=== PATIENT | male | born 1975 | race Caucasian/White ===

== ENCOUNTER 2018-03-24 08:21 | Outpatient (CLI) | payer BC ==
--- NOTE | 2018-03-24 09:08 | RAD ---
LEFT HIP 2 VIEWS: HISTORY: Hip pain. COMPARISON: None. FINDINGS: Mild acetabular osteophyte formation. No acute fracture or malalignment. Left obturator ring is int act. Prominent foramen along the anterior and lateral cortex of the proximal femoral metadiaphysis. Numerous phleboliths in the pelvis. Incompletely visualized left SI joint fusion hardware. IMPRESSION: Mild degenerative change. POS: TPC
== END 2018-03-24 08:22 | disposition home or self-care (01) ==
LOC: RAD 08:21
PROVIDERS: ATTEND Nurse Practitioner Family
DX: M25.552 Pain in left hip (principal); M16.12 Unilateral primary osteoarthritis, left hip
CPT/HCPCS: 80307; 80326; 80331; 80334; 80337; 80341; 80344; 80346; 80348; 80353; 80354; 80355; 80357; 80358; 80359; 80360; 80361; 80364; 80365; 80366; 80367; 80368; 80370; 80371; 80372; 80377

== ENCOUNTER 2019-04-21 05:02 | Inpatient (IN) | payer BC ==
[2019-04-21] MEDS ORDERED: Naloxone HCl 2 mg/2 ml Syringe ONE (05:15)
[2019-04-21 05:32] LABS: Bicarbonate (HCO3v) 4.4 mmol/L (22.0-28.0); CO2 Tension (PvCO2) 20.8 mmHg (40.0-50.0); Calcium, Ionized 1.01 mmol/L (See Comments:); Chloride 104 mmol/L (98-107); Hemoglobin - Calc 16.2 g/dL (14.0-18.0); Potassium 4.1 mmol/L (3.5-5.1); Sodium 125 mmol/L (138-145); vO2 Saturation-calc 90.1 % (60.0-85.0)
[2019-04-21 05:55] LABS: #Eosinphils 0.1 thou/uL (0.0-0.7); #Lymphocytes 1.4 thou/uL (1.20-3.40); #Monocytes 1.9 thou/uL (0.11-0.59); #Neutrophils 13.6 thou/uL (1.40-6.50); %Basophils 0.2 % (0.0-1.0); %Eosinophils 0.7 % (0.0-10.0); %Lymphocytes 8.5 % (21.0-51.0); %Neutrophils 79.7 % (42.0-75.0); Hemoglobin 14.7 g/dL (14.0-18.0); Mean Platelet Volume 9.3 fL (7.4-10.4); Platelet Count 268 thou/uL (130-400); RBC Distribution Width 11.9 % (11.5-14.5); Red Blood Cell (RBC) Count 4.61 mill/uL (4.70-6.10); White Blood Cell (WBC) Count 17.1 thou/uL (4.8-10.8)
[2019-04-21 06:00] LABS: Bacteria/HPF None Seen HPF (None Seen); Bilirubin Negative (Negative); Blood, Urine 1+ (Negative); Clarity Clear (Clear); Glucose, Urine (Dipstick) Greater than 1000 mg/dL (Negative); Leukocyte Negative Leu/uL (Negative); Nitrite Negative (Negative); Protein, Urine (Dipstick) 50 mg/dL (Neg-Trace); RBC/HPF 0-3 HPF (0-3); Squamous Epithelial 0-3 HPF (0-3); Urobilinogen Normal mg/dL (Less than 2); WBC/HPF 0-3 HPF (0-3)
[2019-04-21 06:10] LABS: Acetaminophen Less than 6.0 mcg/mL (10.0-30.0); Alcohol Less than 10 mg/dL (Less than 10); Salicylate Less than 8.0 mg/dL (15.0-30.0)
[2019-04-21 06:11] LABS: ALT (SGPT) 13 U/L (8-55); AST (SGOT) 12 U/L (5-34); Albumin 4.4 g/dL (3.5-5.0); Alcohol Less than 10 mg/dL (Less than 10); Alkaline Phosphatase 54 U/L (40-110); BUN (Urea Nitrogen) 38 mg/dL (8.9-20.6); Bilirubin, Total 0.3 mg/dL (0.2-1.2); Calc. Creatinine Clearance 0 mL/min (70-130); Calcium 8.2 mg/dL (7.8-10.44); Chloride 95 mmol/L (98-107); Estimated GFR-MDRD 30; Globulin 2.5 g/dL (2.4-3.5); Glucose 423 mg/dL (70-105); Potassium 4.3 mmol/L (3.5-5.1); Protein, Total 6.9 g/dL (6.0-8.3); Sodium 130 mmol/L (136-145)
[2019-04-21 06:14] LABS: Carbon Dioxide Less than 8 mmol/L (22-29)
[2019-04-21 06:24] LABS: Actual Bicarbonate (HCO3a) 1.8 mEq/L (22-28); Analyzer IN Cardio ER; Carboxyhemoglobin (COHb) 0.5 gm% (0.0-3.0); Hemoglobin (Hb) 13.9 g/dL (14.0-18.0); O2 Tension (PaO2) 151.6 mmHg (80.0-100.0); Potassium - ABG Lab 4.11 mmol/L (3.70-5.30)
[2019-04-21] MEDS ORDERED: Sodium Bicarb 50 MEQ/50 ML VIAL ONE ×4 (06:26→07:18)
[2019-04-21 06:27] LABS: Amphetamine Not Detected (NotDetected); Barbiturates Screen Not Detected (NotDetected); Benzodiazepine Screen Not Detected (NotDetected); Cocaine Metabolite Screen Not Detected (NotDetected); Medtox Reader # READER 4; Methadone Not Detected (NotDetected); Methamphetamine Not Detected (NotDetected); Opiate Screen Not Detected (NotDetected); Oxycodone Screen Not Detected (NotDetected); Phencyclidine (PCP) Not Detected (NotDetected); THC/Cannabinoid Screen Not Detected (NotDetected); Tricyclic Screen Not Detected (NotDetected)
[2019-04-21 06:28] LABS: Medtox Control Line Valid? VALID (VALID)
[2019-04-21] MEDS ORDERED: Insulin Regular 300 UNITS/3 ML VIAL ONE (06:29)
[2019-04-21] MEDS ORDERED: Sodium Bicarb 50 MEQ/50 ML Abboject 8.4% SYRINGE ONE (06:35)
[2019-04-21 06:36] LABS: pH, Arterial 6.88 (7.35-7.45)
[2019-04-21 06:37] LABS: Base Excess (BEa) -30.1 mEq/L (-2.0 to +3.0); CO2 Tension 9.9 mmHg (35.0-45.0)
[2019-04-21 06:40] LABS: Puncture Site RR
[2019-04-21 06:41] LABS: ALV-art Gradient -14.245 (0-20)
[2019-04-21] MEDS ORDERED: D5 1/2 NS w/20 mEq KCL 1,000 ML IV SCH (06:45)
[2019-04-21] MEDS ORDERED: Insulin Regular 100 units/100 ml in NS IVPB SCH (06:45)
[2019-04-21] MEDS ORDERED: NS 0.9% w/ 20 MEQ KCL 1,000 ML IV SCH (06:45)
[2019-04-21] MEDS ORDERED: Cefepime 2 GM VIAL ONE (06:56)
[2019-04-21] MEDS ORDERED: Amiodarone 150 MG/3 ML VIAL ONE ×2 (07:28→08:03)
[2019-04-21] MEDS ORDERED: Digoxin 0.5 MG/2 ML AMP ONE (07:38)
[2019-04-21] MEDS ORDERED: Amiodarone 450 MG, Admixture Fee 1 EACH in Dextrose 5% in Water 250 ML IVPB SCH (08:00)
--- NOTE | 2019-04-21 08:03 | RAD ---
Chest AP view INDICATION: Altered mental status COMPARISON: April 21, 2019 5:22 AM FINDINGS: Lungs:The lungs are clear Cardiac silhouette:The cardiomediastinal silhouette appears within normal limits. Pulmonary vasculature:Normal Pleural spaces:No pleural effusion or pneumothorax is demonstrated. Upper abdomen:No abnormality seen. Osseous structures: No acute osseous abnormality. Additional findings:There is a new right IJ central venous catheter with the tip projecting in the re gion of the SVC. Dorsal column stimulator is unchanged in position. IMPRESSION: New right IJ central venous catheter as above. No acute abnormality.
--- NOTE | 2019-04-21 08:32 | RAD ---
Exam: Chest one view HISTORY:Altered mental status. Comparison: None FINDINGS: Cardiac silhouette: Normal Aorta: Unremarkable Pulmonary vessels: Normal Costophrenic angles: Clear LUNGS: No masses or consolidation. Pneumothorax: None Osseous abnormalities: None IMPRESSION: No acute cardiopulmonary process.
--- NOTE | 2019-04-21 08:33 | CT ---
PRELIMINARY REPORT/[facility]/EMERGENCY AFTER HOURS PROCEDURE: EXAM: CT Head Without Intravenous Contrast. CLINICAL HISTORY: Chronic back pain. Pain since Thursday. Lower back pain and, last 2 days sleeping more and not communic ating well. Takes hydrocodone and oxycontin. BG 338, VS stable. 120/56, HR 100, 94% RA. Back fusion 2 001. TECHNIQUE: Axial computed tomography images of the head/brain without intravenous contrast. COMPARISON: None provided. FINDINGS: BRAIN: No acute intraparenchymal hemorrhage. No mass lesion. No CT evidence for acute territorial inf arct. No midline shift or extra-axial collection. VENTRICLES: No hydrocephalus. ORBITS: The orbits are unremarkable. SINUSES AND MASTOIDS: Mild sphenoid chronic sinusitis SOFT TISSUES: No significant facial or scalp soft tissue swelling evident. No radiopaque foreign body is seen. BONES: No acute skull fracture. IMPRESSION: No acute intracranial abnormality. ELECTRONICALLY SIGNED BY: Trung Aaron M.D. Apr 21, 2019 6:43:26 AM HEAD HOLDER This report is intended for review by the ordering physician only, in accordance of law. If you recei ve this report in error, please call [facility] at [phone]. FINAL REPORT HEAD CT WITHOUT CONTRAST: HISTORY: Altered mental status. COMPARISON: None. FINDINGS: No parenchymal hemorrhage. No extraaxial hematoma. No midline shift. Basilar cisterns are patent. Intact calvarium. Adequate aeration of the sinuses and mastoid air rita ls. IMPRESSION: This report is in agreement with the initial report by [facility]. No acute intracranial proce ss. POS: OFF
[2019-04-21 08:37] LABS: BUN (Urea Nitrogen) 39 mg/dL (8.9-20.6); Calc. Creatinine Clearance 0 mL/min (70-130); Calcium 6.8 mg/dL (7.8-10.44); Carbon Dioxide Less than 8 mmol/L (22-29); Chloride 103 mmol/L (98-107); Estimated GFR-MDRD 33; Glucose 356 mg/dL (70-105); Potassium 3.4 mmol/L (3.5-5.1); Sodium 137 mmol/L (136-145)
[2019-04-21] MEDS ORDERED: Sodium Bicarbonate 150 MEQ in Dextrose 5% in Water 1,000 ML IV SCH ×3 (08:45→10:15)
[2019-04-21] MEDS ORDERED: Bisacodyl 5 MG TAB PO PRN (08:49)
[2019-04-21] MEDS ORDERED: Ondansetron PF 4 MG/2 ML Vial IVP PRN (08:49)
[2019-04-21] MEDS ORDERED: CCU Electrolyte Replacement 1 EACH IVPB SCH (08:49)
[2019-04-21] MEDS ORDERED: Fentanyl 100 MCG/2 ML VIAL SLOW IVP PRN ×2 (08:53→15:45)
[2019-04-21] MEDS ORDERED: Amiodarone 450 MG in Dextrose 5% in Water 250 ML IVPB SCH (09:00)
[2019-04-21] MEDS ORDERED: Propofol 1,000 MG/100 ML VIAL IV ONE (09:06)
[2019-04-21 09:14] LABS: Magnesium 2.6 mg/dL (1.6-2.6); Phosphorus 5.3 mg/dL (2.3-4.7)
[2019-04-21 09:17] VITALS: BMI 27.5
[2019-04-21 09:21] LABS: Actual Bicarbonate (HCO3a) 2.8 mEq/L (22-28); Calcium, Ionized 1.14 mmol/L (1.12-1.30); Carboxyhemoglobin (COHb) 1.2 gm% (0.0-3.0); Hemoglobin (Hb) 13.2 g/dL (14.0-18.0); O2 Tension (PaO2) 145.9 mmHg (80.0-100.0); Potassium - ABG Lab 3.73 mmol/L (3.70-5.30); pH, Arterial 7.03 (7.35-7.45)
[2019-04-21 09:22] LABS: CO2 Tension 10.9 mmHg (35.0-45.0); Puncture Site RR
[2019-04-21] MEDS ORDERED: Norepinephrine 8 MG/0.9% NS 250 ML IVPB SCH (09:30)
[2019-04-21] MEDS ORDERED: D5 1/2 NS w/20 mEq KCL 1,000 ML ONE (09:47)
[2019-04-21] MEDS ORDERED: Acetaminophen 650 MG Suppository PR PRN (09:54)
[2019-04-21] MEDS: D5 1/2 NS w/20 mEq KCL 1,000 ML IV SCH ×3 (10:29→22:42)
[2019-04-21] MEDS: Famotidine/PF 20 mg/2ml Vial SLOW IVP SCH (11:40)
[2019-04-21] MEDS: Piperacillin/Tazobactam 3.375 GM in Sodium Chloride 0.9% 100 ML IVPB SCH ×3 (11:40→22:41)
--- NOTE | 2019-04-21 12:30 | CON ---
DATE OF CONSULTATION: 04/21/2019 SERVICE: Pulmonary Medicine. REASON FOR CONSULTATION: ICU patient. HISTORY OF PRESENT ILLNESS: The patient is a 43-year-old white male with past medical history significant for type 1 diabetes mellitus. He was in his usual state of health when he presented to the Emergency Department. I really cannot get any history from him presently. He presented to the Emergency Department with altered mentation and was discovered to be in diabetic ketoacidosis. It is not clear if there is a precipitating cause. I am not certain when he was last in his usual state of health, but his primary family members report that he had a recent night of significant alcohol use and possibly noncompliance with medication. Either way, in the Emergency Department, he was started on insulin. He had a tachyarrhythmia and was in atrial fibrillation. He ended up getting Cardizem, amiodarone, and digoxin. A 5 L of fluid have gone in him so far. He is currently on saline at 500 an hour. He denies having any significant shortness of breath, but he is lightheaded currently. PAST MEDICAL HISTORY: 1. Type 2 diabetes mellitus. 2. Hypertension. 3. Dyslipidemia. PAST SURGICAL HISTORY: 1. Back surgeries x8. 2. Knee surgery x1. SOCIAL HISTORY: Positive for significant alcohol use. He uses chewing tobacco. He previously denied any recreational drug use. FAMILY HISTORY: Noncontributory. ALLERGIES: NO KNOWN DRUG ALLERGIES. MEDICATIONS: List of his inpatient medications was reviewed. No specific updates were made at this time. REVIEW OF SYSTEMS: Cannot be obtained as the patient is currently encephalopathic. PHYSICAL EXAMINATION: VITAL SIGNS: Afebrile, pulse 140, respirations 25, and saturation 100%, currently on 2 L nasal cannula. Blood pressure 88/46. HEENT: Normocephalic and atraumatic. Sclerae white. Conjunctivae pink. Oral mucosa is moist without lesions. LUNGS: Decent air entry. No prolonged expiratory phase or wheezing is appreciated. HEART: Tachycardic. Regular. ABDOMEN: Soft, nontender, and nondistended. Bowel sounds are positive. MUSCULOSKELETAL: No cyanosis or clubbing. There is no pitting in the bilateral lower extremities. NEUROLOGIC: Grossly nonfocal. He moves all 4 extremities spontaneously and is following some simple commands with significant stimulation. LABORATORY DATA: WBC 7.1, hemoglobin 14.7, and platelets 268,000. A pH of 6.88, CO2 of 9.9, and O2 of 151. Ionized calcium falls within the normal limits. Bicarb is below the assay limit of 8, and an anion gap cannot be calculated, but it is quite high. Sodium and potassium are unremarkable. Creatinine 2.15, which is in historic high. Lactate 1.7, calcium 6.8, though the ionized calcium is normal. Phosphorus 5.3 and magnesium 2.3. Liver function studies are unremarkable. Urinalysis is remarkable only for ketones, and glucose. Beta-hydroxybutyric acid 14.47. Plasma alcohol is negative. Urine drug screen is also unremarkable. IMAGIN. CT of the brain demonstrates no acute intracranial abnormality. 2. Chest x-ray demonstrates a right IJ. Outside of that, there is no acute cardiopulmonary abnormality. ASSESSMENT: 1. Acute hypoxic respiratory failure. 2. Diabetic ketoacidosis. 3. Metabolic encephalopathy. 4. Acute kidney injury. 5. Systemic inflammatory response syndrome. DISCUSSION AND PLAN: We do not truthfully need to give him much in the way of bicarb. As he fix his acidosis, this should clear through time. I will repeat an ABG to make certain that he is clearing the acidosis. If he has, we will continue to watch him closely. I will switch his fluids over to half-normal saline and run him at 250 an hour. This will contain dextrose. Pulmonary/Critical Care will follow very closely while the patient remains in the ICU. We will initiate some Levophed to maintain MAPs of 65 or better. CRITICAL CARE TIME: 30 minutes. Job ID: [id number]
--- NOTE | 2019-04-21 12:57 | CON ---
DATE OF CONSULTATION: 04/21/2019 HISTORY OF PRESENT ILLNESS: I am seeing Mr. Pruett at our [facility] ICU as an Electrophysiology nursing education consultant. His problems are: 1. Atrial fibrillation with rapid ventricular rates; Difficult rate control due to hypotension. 2. Ketoacidosis with pH at 6.88. 3. History of diabetes. 4. History of EtOH abuse. 5. History of depression. 6. History of hypertension. 7. History of hypercholesteremia. 8. History of chronic back pain with repeated back surgeries. ALLERGIES: NONE NOTED. MEDICATIONS: At home include: 1. Glucosamine. 2. Benadryl. 3. Duloxetine. 4. Simvastatin. 5. Tadalafil. 6. Fenofibrate. 7. Metformin. 8. OxyContin. 9. Gabapentin. 10. Omeprazole. 11. Tizanidine. SUBJECTIVE: Mr. Pruett is here with complaining of chronic back pain initially, also with very rapid breathing and in obvious extreme distress. He was admitted in ER, found to be markedly acidotic with initial diltiazem dropped his blood pressure. Eventually, digoxin was administered and later amiodarone was also requested. He has no dizziness or loss of consciousness. No stroke-like symptoms. No neurological deficit noted there. His family is at the bedside. Rest of 12- point system otherwise unremarkable. OBJECTIVE DATA: VITAL SIGNS: Blood pressure is 104/56, pulse 72, respirations 19, weight 132 pounds, temperature is 95 degrees Fahrenheit. GENERAL: Alert and oriented man with apparent labored respiration. Elevated BMI. CHEST: Coarse without crackles. HEART: Sounds are tachycardic. No murmur or gallop. Irregularly irregular rhythm is heard. ABDOMEN: Benign. Bowel sounds positive. EXTREMITIES: Lower extremity without edema, clubbing, or cyanosis. Pulses are diminished. NEUROLOGIC: The patient is nonfocal. MUSCULOSKELETAL: Without joint swelling or deformity. SKIN: Without rash. DATABASE: Chest x-ray reveals no acute cardiopulmonary process. Brain CT was also negative. No acute intracranial abnormality. LABORATORY DATA: The ABGs initially reveals pH of 6.88 and 7.03, pCO2 is 9.9 and 10.9, pO2 is 151 and 145 consecutively. Potassium 4.11 and 3.73. Sodium 137, potassium 3.4, chloride 103, BUN is 39, creatinine 2.15 at 7:56 a.m. The initial blood work shows sodium 130, potassium 4.3, BUN is 38, creatinine is 2.36. Troponin I is 0.15. The EKG is reviewed, which is revealing atrial fibrillation with rapid rates. During my exam, he has converted back to sinus tachycardia. ASSESSMENT AND PLAN: Mr. Pruett is a 43-year-old man with prior history of diabetes, hypertension, no prior cardiac disease, who presented with atrial fibrillation and rapid rates with hypotension in the setting of likely diabetic ketoacidosis. He had difficulty to maintain his blood pressure with the usual heart rhythm controlling medications. Eventually required amiodarone for suppression with suboptimal results, but finally he converted back to sinus rhythm. He is receiving appropriate therapy with Dr. Rocha's care for the ketoacidosis with hydration, acid-base correction, and electrolyte correction as well. I think the atrial fibrillation likely secondary phenomenon to his marked metabolic derangement. Correction of this is paramount as already initiated by Dr. Rocha. Further hydration is back on as necessary. Electrolyte needs to be closely monitored. Hence, likely to get shifted with marked fluid and acid shift. At this point, I agree with the initiated amiodarone therapy. For now, seems to be back in sinus rhythm. Continued IV amiodarone until he can take p.o. pills. May consider rapid taper and discontinuation in the future. 2D echo will be requested and will continue recommendations in the future. Likely will need at least transient anticoagulation. Hence, his CHADS-VASc score is 2. Discussed these issues with Dr. Rocha and his family is at bedside. Job ID: [id number] [facility]
[2019-04-21] MEDS ORDERED: HYDROcodone/Acetaminophen 10/325 mg Tablet PO PRN (13:17)
[2019-04-21] MEDS ORDERED: [UNRECOGNIZED DRUG - REMARK] IVPB PRN (14:13)
[2019-04-21 14:54] LABS: Anion Gap 24 mmol/L (10-20); BUN (Urea Nitrogen) 35 mg/dL (8.9-20.6); Calc. Creatinine Clearance 68 mL/min (70-130); Calcium 7.4 mg/dL (7.8-10.44); Carbon Dioxide 11 mmol/L (22-29); Chloride 108 mmol/L (98-107); Estimated GFR-MDRD 38; Glucose 153 mg/dL (70-105); Magnesium 2.2 mg/dL (1.6-2.6); Phosphorus Less than 1.0 mg/dL (2.3-4.7); Potassium 3.7 mmol/L (3.5-5.1); Sodium 139 mmol/L (136-145)
--- NOTE | 2019-04-21 15:01 | HP ---
CHIEF COMPLAINT: Change in mental status. HISTORY OF PRESENT ILLNESS: The patient is a 43-year-old male who is a type 1 diabetic, who was brought in to the hospital by his girlfriend for change in mental status. The patient upon my evaluation, appears very ill, was tachypneic and was really not able to answer any questions. The patient's father was at the bedside, who stated that the patient has been under a lot of stress due to a recent divorce and has been very depressed. He normally has an insulin pump and there was some concern he ran out of his insulin. Apparently, last night, he started having abdominal pain, nausea, and vomiting. This is per all the ER notes. PAST MEDICAL HISTORY: He has a history of hypertension and diabetes type 1 and significant back surgeries. PAST SURGICAL HISTORY: He has had multiple back surgeries. He had 10. He also has an insulin pump. REVIEW OF SYSTEMS: Unable to obtain. The patient is currently awake, alert, but is unable to respond to detailed questions. SOCIAL HISTORY: He drinks socially. He has been drinking a lot on the weekends. He chews tobacco. No other recreational drug use. ALLERGIES: NO KNOWN DRUG ALLERGIES. MEDICATIONS: This is per ER notes. He takes Benadryl, glucosamine. He is on duloxetine, simvastatin, fenofibrate, metformin, OxyContin, gabapentin, omeprazole, and tizanidine. PHYSICAL EXAMINATION: VITAL SIGNS: Temperature 97.7, respirations were about 25. His pulse was ranging from 130-160, atrial fibrillation, blood pressure was 90/60, sats were 97% on room air. GENERAL: The patient was very tachypneic, awake, however, responsive to only a few questions. HEENT: Mucous membranes are dry. Pupils equal reactive to light. CV: S1 and S2 present. Irregularly irregular. He was in atrial fibrillation. LUNGS: Clear to auscultation. No rhonchi or wheezes noted. ABDOMEN: Obese. Bowel sounds are present x2. No pain upon palpation. EXTREMITIES: No edema. Pedal pulses are present x2. Neurovascular squires, the patient is moving all 4 extremities. He is awake and able to recall his name, but is not able to give me any further history. SKIN: No cuts, lesions, or bruises noted. LABORATORY DATA: WBCs of 17.1, hemoglobin of 14.7, hematocrit of 44.7, his platelets are 268. Chemistry: Sodium of 137, potassium of 3.4. His bicarb was less than 8. His creatinine was 2.3. His glucose was high, in the 300s. He also had an ABG which indicated a pH of 6.88, pCO2 of 9.9. He did have a CT head and a chest x-ray. The CT head did not show any acute abnormalities. The chest x-ray also did not show any acute abnormalities. ASSESSMENT AND PLAN: The patient is a very pleasant 43-year-old male who presents to the hospital with altered mental status. 1. Acute metabolic encephalopathy, most likely from the acidosis. The patient, currently, I do not believe he requires any intubation. He is awake and following commands. We will continue to monitor. 2. Diabetic ketoacidosis. The patient has been given 4 L of normal saline boluses. He is currently started on insulin drip. We will continue to monitor. His beta hydroxy is 14. We will check a hemoglobin A1c. The patient's father thinks that he has not been taking his insulin. He is a type 1 diabetic. 3. Acute kidney injury. We will continue IV hydration. 4. Elevated anion gap metabolic acidosis, most likely secondary from his diabetic ketoacidosis. Again, the patient was given four amps of bicarb. He was started on a bicarb drip, also Nephrology has been consulted. 5. Hypokalemia. We will replace the potassium. 6. Atrial fibrillation with rapid ventricular response. The patient initially was given Cardizem which dropped his pressure. He was then given digoxin 0.5 IV and was put on amiodarone drip. Cardiology was consulted. Also, EP was consulted given his low blood pressure and atrial fibrillation with rapid ventricular response. There were some thoughts about cardioversion; however, patient converted chemically. We will put him on anticoagulation. 7. Deep venous thrombosis prophylaxis, we will put the patient on anticoagulation. Job ID: [id number]
[2019-04-21] MEDS ORDERED: Potassium Phosphate 30 MMOL in Sodium Chloride 0.9% 500 ML IVPB SCH (16:45)
[2019-04-21 21:04] LABS: Anion Gap 20 mmol/L (10-20); BUN (Urea Nitrogen) 26 mg/dL (8.9-20.6); Calc. Creatinine Clearance 75 mL/min (70-130); Calcium 7.7 mg/dL (7.8-10.44); Carbon Dioxide 16 mmol/L (22-29); Chloride 109 mmol/L (98-107); Estimated GFR-MDRD 42; Glucose 104 mg/dL (70-105); Magnesium 2.2 mg/dL (1.6-2.6); Potassium 3.6 mmol/L (3.5-5.1); Sodium 141 mmol/L (136-145)
[2019-04-21] MEDS: Enoxaparin Sodium 100 MG/ML SYRINGE SC SCH (21:15)
[2019-04-21] MEDS: Vancomycin HCl 1 GM in Premix Bag 1 BAG IVPB SCH (21:16)
[2019-04-21] MEDS ORDERED: Potassium Phosphate 9 MMOL in Sodium Chloride 0.9% 100 ML IVPB PRN (21:57)
[2019-04-21] MEDS ORDERED: Potassium Phosphate 15 MMOL in Sodium Chloride 0.9% 250 ML 250 ML IV PRN (21:57)
[2019-04-21] MEDS ORDERED: Potassium Chloride 40 MEQ in Sodium Chloride 0.9% 250 ML 250 ML IVPB PRN (21:57)
[2019-04-21] MEDS ORDERED: Potassium Chloride 20 MEQ TAB PO PRN (21:57)
[2019-04-21] MEDS ORDERED: CCU ELECTROLYTE REPLACEMENT PROTOCOL FS PRN (21:57)
[2019-04-21] MEDS ORDERED: Potassium Phosphate 12 MMOL in Sodium Chloride 0.9% 250 ML 250 ML IV PRN (21:57)
[2019-04-21] MEDS ORDERED: PHOS-NAK 1 PKT PACK PO PRN ×2 (21:57)
[2019-04-21] MEDS ORDERED: Potassium Chloride 40 MEQ in Premix Bag 1 BAG IVPB PRN (21:57)
[2019-04-21] MEDS ORDERED: Magnesium 2 GM/50 ML 2 GM in Premix Bag 1 BAG IVPB PRN (21:57)
[2019-04-21] MEDS ORDERED: Magnesium Oxide 400 MG TAB PO PRN ×2 (21:57)
[2019-04-22] MEDS: Piperacillin/Tazobactam 3.375 GM in Sodium Chloride 0.9% 100 ML IVPB SCH ×2 (00:41→12:48)
[2019-04-22 03:58] LABS: Albumin 3.5 g/dL (3.5-5.0)
[2019-04-22 03:59] LABS: Chloride 108 mmol/L (98-107); Potassium 3.1 mmol/L (3.5-5.1); Sodium 138 mmol/L (136-145)
[2019-04-22 04:00] LABS: Calcium 7.6 mg/dL (7.8-10.44); Glucose 89 mg/dL (70-105)
[2019-04-22 04:01] LABS: Globulin 2.1 g/dL (2.4-3.5); Protein, Total 5.6 g/dL (6.0-8.3)
[2019-04-22 04:02] LABS: Anion Gap 19 mmol/L (10-20); Bilirubin, Total 0.5 mg/dL (0.2-1.2); Carbon Dioxide 14 mmol/L (22-29)
[2019-04-22 04:03] LABS: Alkaline Phosphatase 39 U/L (40-110)
[2019-04-22 04:04] LABS: Calc. Creatinine Clearance 99 mL/min (70-130); Estimated GFR-MDRD 58
[2019-04-22 04:05] LABS: AST (SGOT) 20 U/L (5-34); BUN (Urea Nitrogen) 17 mg/dL (8.9-20.6)
[2019-04-22 04:06] LABS: ALT (SGPT) 13 U/L (8-55)
--- NOTE | 2019-04-22 07:17 | CON ---
DATE OF CONSULTATION: 04/21/2019 SERVICE: Nephrology. REASON FOR CONSULTATION: Acute kidney injury and severe metabolic acidosis. REQUESTING PHYSICIAN: Dr. Rocha. CHIEF COMPLAINT: Acute mental status change. HISTORY OF PRESENT ILLNESS: The patient is altered and nonverbal, hence no significant history was obtained from him. The following history was obtained from review of medical record and from talking to parents at the bedside. The patient with type 1 diabetes mellitus, usually on insulin pump, was brought in by girlfriend due to mental status change. Also, the patient reportedly was started having nausea, vomiting, abdominal pain since last night. He was also reported that the patient who is going through divorce had been depressed in recent days and been drinking excessive amount of alcohol. It is also reported that the patient may have ran out of his insulin, which he uses via a pump. On presentation, the patient was altered, was unable to provide any significant history. He was also found to be tachycardic and attempt of giving Cardizem dropped his blood pressure, hence he was given digoxin and later on amiodarone. The patient was also found to be clinically dry, severely acidotic and with acute kidney injury and was resuscitated with IV fluid about 5 L and subsequently started on insulin infusion. PAST MEDICAL HISTORY: 1. Hypertension. 2. Hyperlipidemia. 3. Chronic back pain. 4. Type 1 diabetes, on insulin pump. PAST SURGICAL HISTORY: Back surgeries. FAMILY HISTORY: Unable to perform. SOCIAL HISTORY: The patient seems to be living with girlfriend. Reportedly, going through divorce. Drinks alcohol socially. There is no history of recreational drug use. ALLERGIES: NO KNOWN DRUG ALLERGIES REPORTED. HOME MEDICATIONS: 1. Hydrocodone/acetaminophen 10/325 one tablet q.6 p.r.n. 2. OxyContin 20 mg at bedtime. 3. Amlodipine 5 mg p.o. daily. 4. Cholecalciferol 5000 units daily. 5. Cymbalta 60 mg p.o. daily. 6. Jardiance 25 mg p.o. daily. 7. Fenofibrate 134 mg p.o. daily. 8. Gabapentin 300 mg p.o. t.i.d. 9. Levothyroxine 150 mcg p.o. daily. 10. Cozaar 100 mg p.o. daily. 11. Metformin 1000 mg p.o. b.i.d. with meals. 12. Phentermine 37.5 mg p.o. daily. 13. Simvastatin 40 mg p.o. daily at bedtime. 14. Tadalafil 20 mg p.o. p.r.n. 15. Tizanidine 4 mg p.o. t.i.d. REVIEW OF SYSTEMS: Could not be performed due to the patient's condition. PHYSICAL EXAMINATION: VITAL SIGNS: Temperature 95.7, pulse 112, respiratory rate 22, SpO2 of 100% on room air, and blood pressure is 89/63. GENERAL: Obese male, in some respiratory distress due to tachypnea. The patient however is afebrile, anicteric, and acyanotic. In fact, he is hypothermic and had Lizzie Hugger in place. HEENT: Normocephalic and atraumatic. Oral mucosa is dry. NECK: Supple with no JVD. CARDIOVASCULAR: Irregular rhythm and rate with tachycardia. RESPIRATORY: Fair air entry bilateral with some transmitted breath sounds. The patient is tachypneic. No obvious rhonchi were appreciated. GI: Full, soft, nontender, nondistended with normal bowel sounds. EXTREMITIES: Grossly normal looking, atraumatic with no edema. UROGENITAL: Price catheter is in place. BLIND INSTALLER: The patient is awake. He manages to say one or few words. Cranial nerves 2 through 12 are grossly intact. DIAGNOSTIC DATA: CBC showed WBC count of 17, hemoglobin of 14.7, MCV of 97.0, platelets of 268. Initial blood gas showed pH of 6.88 with pCO2 of 9.9. Repeat blood gas 3 hours later showed pH of 7.03 with pCO2 of 10.9. Initial CMP on presentation showed sodium 130, potassium 4.2, chloride 95, CO2 less than 8, BUN 38, creatinine 2.36, glucose 423, calcium 8.2. Liver enzymes were unremarkable as well as bilirubin. Repeat BMP 2 hours later showed sodium 137, potassium 3.4, chloride 103, CO2 less than 8, BUN 39, creatinine 2.15, glucose 356, and calcium 6.8. Urinalysis showed light yellow, clear urine with pH of 5.5, specific gravity of 1.022 with urine protein of 50, urine glucose more than 1000 and urine ketones greater than 150 with 1+ blood, negative nitrite, bilirubin, and leukocyte esterase. Microscopy showed 0 to 3 rbc and 0 to 3 wbc. Urine drug screen was unremarkable. Salicylate was less than 8. Acetaminophen was less than 6.0, and plasma alcohol was less than 10. However, beta hydroxybutyrate was 14.47. Chest x-ray showed normal cardiac silhouette with unremarkable aorta and normal pulmonary vessels as well as clear costophrenic angles. No acute cardiopulmonary process was noted. CT scan of the brain showed no acute intracranial abnormality. ASSESSMENT: 1. Acute kidney injury: Due to hemodynamic factors related to volume depletion as well as cytokine mediated injury induced nephrotoxicity. 2. Hyperkalemia. 3. Hypokalemia. 4. High anion gap metabolic acidosis: This is due to DKA as well as alcohol abuse. The patient also was on metformin prior to presentation. 5. DKA. 6. Uncontrolled diabetes. 7. Alcohol intoxication. 8. Alcohol abuse. 9. Atrial fibrillation with rapid ventricular response. 10. Hypotension: Due to volume depletion. 11. Acute mental status change due to acute toxic and metabolic encephalopathy. PLAN: 1. We will start sodium bicarbonate. Aggressive IV fluid therapy will be continued. Insulin therapy as per primary attending. 2. We will replete serum potassium. 3. We will also get phosphorus and magnesium and replete as indicated. 4. Further treatment to follow depending on hospital course. Job ID: [id number]
[2019-04-22] MEDS: DULoxetine 60 MG CAP PO SCH (07:43)
[2019-04-22] MEDS: Enoxaparin Sodium 100 MG/ML SYRINGE SC SCH ×2 (07:43→20:39)
[2019-04-22] MEDS: Famotidine/PF 20 mg/2ml Vial SLOW IVP SCH ×2 (07:43→20:30)
[2019-04-22] MEDS: Vancomycin HCl 1 GM in Premix Bag 1 BAG IVPB SCH (07:43)
[2019-04-22 08:41] LABS: Magnesium 2.2 mg/dL (1.6-2.6)
--- NOTE | 2019-04-22 08:43 | PRG ---
DATE OF SERVICE: 04/22/2019 SERVICE: Nephrology. SUBJECTIVE: A 43-year-old male with known history of hypertension, diabetes, and depression, admitted due to acute mental status change as well as nausea and vomiting. The patient was found to be hypotensive in atrial fibrillation as well as DKA with severe metabolic acidosis and DARIAN. Nephrology is following the patient for electrolyte derangement, metabolic acidosis, and DARIAN. The patient is clinically improved. Conversational today. Denied any new complaints. Denied nausea, vomiting, or chest pain. OBJECTIVE: VITAL SIGNS: Temperature 97.7, pulse 69, respiratory rate 19, SpO2 100% on room air, blood pressure is 142/61. GENERAL: Middle-age male, in no obvious distress. Afebrile. Anicteric. Acyanotic. HEENT: Normocephalic, atraumatic. Oral mucosa is moist. NECK: Supple with no JVD. CARDIOVASCULAR: Regular rhythm and rate with normal heart sounds one and two. RESPIRATORY: Fair air entry bilateral with some transmitted breath sounds. No obvious rhonchi or crackle appreciated. GI: Full, soft, nontender, nondistended with normal bowel sounds. EXTREMITIES: Grossly normal-looking, atraumatic with no obvious edema or erythema. GAS WELDER APPRENTICE: Conscious, alert and oriented x3 with appropriate mental status. The patient is conversational and moves all extremities. DIAGNOSTIC DATA: CMP today showed sodium 138, potassium 3.1, chloride 108, CO2 14, anion gap 19, BUN 17, creatinine 1.33, glucose 89, calcium 7.6, total bilirubin 0.5, AST 20, ALT 13, alkaline phosphatase 39, total protein 5.6, albumin 3.5, globulin 2.1. ASSESSMENT: 1. Acute kidney injury: Due to hemodynamic factors related to volume depletion from poor oral intake, increased GI losses and increased renal losses. Creatinine has improved from admission level of 2.36 to 1.33. 2. Severe metabolic acidosis: Initially of high anion gap type, but currently combined of both high anion gap and hyperchloremic acidosis. 3. Hypokalemia. 4. Hypophosphatemia. 5. Diabetic ketoacidosis. 6. Uncontrolled diabetes mellitus. 7. Alcohol abuse. 8. Acute metabolic and toxic encephalopathy. 9. Paroxysmal atrial fibrillation with rapid ventricular response. Back in sinus. PLAN: 1. Continue IV fluid therapy as well as insulin therapy. 2. Replete serum potassium. 3. We will get phosphorus level and replete, if indicated. 4. We will recommend transitioning from half NS plus potassium chloride to LR due to worsening hyperchloremic acidosis. 5. We will recheck renal function test in the morning. 6. Further treatment as per single needle tufting machine operator and primary care physician. Job ID: [id number]
[2019-04-22 08:47] LABS: Phosphorus 1.2 mg/dL (2.3-4.7)
[2019-04-22] MEDS: D5 1/2 NS w/20 mEq KCL 1,000 ML IV SCH (09:21)
[2019-04-22] MEDS ORDERED: Insulin Glargine 40 UNITS in Pre-Filled Syringe 1 EACH SC SCH (12:15)
[2019-04-22] MEDS ORDERED: D5 1/2 NS w/20 mEq KCL 1,000 ML IV SCH (12:30)
[2019-04-22] MEDS ORDERED: Insulin Regular 100 units/100 ml in NS IVPB SCH (12:30)
--- NOTE | 2019-04-22 12:39 | PDOC.EP ---
- Subjective Date: 04/22/19 Time: 12:37 Interval History: follow up for atrial fibrillation in the setting of acidosis DKA Awake, alert, feels tired and hungry. Does not recall much of yesterday. Family is bedside. Remains on amiodarone in SR - Review of Systems Constitutional: reports: weakness. denies: chills, fever, malaise, sweats Respiratory: denies: cough, dry, hemoptysis, pleuritic pain, shortness of breath , sputum, wheezing Cardiology: denies: chest pain, edema, heart racing, light headedness, palpitations, passing out Gastrointestinal: denies: abdominal pain, constipation, diarrhea, nausea, vomitting Musculoskeletal: denies: unstable gait, falls, neck pain, shoulder pain Neurological: denies: headache, vision changes - Objective Allergies/Adverse Reactions: Allergies Allergy/AdvReac Type Severity Reaction Status Date / Time No Known Drug Allergies Allergy Unverified 04/21/19 06:30 Current Medications Acetaminophen (Tylenol) 650 mg [place] Q6H PRN PRN Reason: Headache/Fever or Pain Last Admin: 04/21/19 21:11 Dose: 650 mg Hydrocodone Bitart/Acetaminophen (Rogers 10/325) 1 tab PO Q4H PRN PRN Reason: Moderate Pain (4-6) Bisacodyl (Dulcolax) 10 mg PO DAILYPRN PRN PRN Reason: Constipation Duloxetine HCl (Cymbalta) 60 mg PO DAILY [facility] Last Admin: 04/22/19 07:43 Dose: 60 mg Enoxaparin Sodium (Lovenox) 100 mg SC 0900,2100 [facility] Last Admin: 04/22/19 07:43 Dose: 100 mg Famotidine (Pepcid) 20 mg SLOW IVP BID [facility] Fentanyl (Sublimaze) 25 mcg SLOW IVP Q2H PRN PRN Reason: Mild-Moderate Pain (1-5) Fentanyl (Sublimaze) 50 mcg SLOW IVP Q3H PRN PRN Reason: Severe Pain (7-10) Amiodarone HCl 450 mg/Miscellaneous Medication 1 each/ Dextrose/Water 259 mls @ 0 mls/hr IVPB INF [facility]; Protocol Last Admin: 04/21/19 16:26 Dose: 259 mls Piperacillin Sod/Tazobactam (Sod 3.375 gm/ Sodium Chloride) 100 mls @ 200 mls/ hr IVPB Q6HR [facility] Last Admin: 04/22/19 00:41 Dose: 100 mls Vancomycin HCl 1 gm/ Device 200 mls @ 200 mls/hr IVPB 08,1999 [facility] Last Admin: 04/22/19 07:43 Dose: 200 mls Potassium Chloride 40 meq/ (Sodium Chloride) 270 mls @ 135 mls/hr IVPB ASDIR PRN PRN Reason: FOR SERUM K+ 2.5 - 3.5 Potassium Chloride 40 meq/ (Device) 100 mls @ 50 mls/hr IVPB ASDIR PRN PRN Reason: FOR SERUM K+ 2.5 - 3.5 Magnesium Sulfate 1 gm/ Sodium (Chloride) 102 mls @ 102 mls/hr IV PRN PRN PRN Reason: MAG LEVEL 1.4 - 2.0 Magnesium Sulfate 2 gm/ Device 50 mls @ 50 mls/hr IVPB ASDIR PRN PRN Reason: MAGNESIUM < 1.4 Potassium Phosphate 9 mmol/ (Sodium Chloride) 103 mls @ 25.75 mls/hr IVPB ASDIR PRN PRN Reason: Phosphate 1.0-1.8 Last Admin: 04/22/19 09:35 Dose: 103 mls Potassium Phosphate 12 mmol/ (Sodium Chloride) 254 mls @ 63.5 mls/hr IV ASDIR PRN PRN Reason: Serum phosphate 0.5-0.9 Potassium Phosphate 15 mmol/ (Sodium Chloride) 255 mls @ 63.75 mls/hr IV ASDIR PRN PRN Reason: Serum Phos < 0.5 Insulin Glargine 40 units/ (Miscellaneous Medication) 0.4 mls @ 0 mls/hr [facility] NOW [facility] Stop: 04/22/19 14:15 Insulin Human Regular 100 (units/ Sodium Chloride) 101 mls @ 3 mls/hr IVPB INF [facility] Stop: 04/22/19 17:00 Potassium Chloride/Dextrose/Sod Cl (D5 1/2 Ns W/20 Meq Kcl) 1,000 mls @ 100 mls /hr IV .Q10H [facility] Stop: 04/22/19 17:00 Magnesium Oxide (Magnesium Oxide) 400 mg PO BIDPRN PRN PRN Reason: FOR SERUM MAG 1.4 - 2.0 Magnesium Oxide (Magnesium Oxide) 800 mg PO PRN PRN PRN Reason: FOR SERUM MAG < 1.4 Miscellaneous Medication (Ccu Electrolyte Replacement) 1 each IVPB [facility] Stop: 05/21/19 08:50 Miscellaneous Medication (Pharmacy To Dose) 1 each IVPB PRN PRN PRN Reason: Pharmacy to dose Miscellaneous Medication (Pharmacy To Dose) 1 each IVPB PRN PRN PRN Reason: Pharmacy to dose Miscellaneous Medication (Phos-Nak) 1 pkt PO TIDPRN PRN PRN Reason: FOR PHOS LEVEL 1.0 - 1.8 Miscellaneous Medication (Phos-Nak) 2 pkt PO TIDPRN PRN PRN Reason: FOR PHOS LEVEL 0.5 - 1.0 Ccu Electrolyte (Replacement Protocol) 0 each FS PRN PRN PRN Reason: FOR ELECTROLYTE REPLACEMENT Ondansetron HCl (Zofran) 4 mg IVP Q6H PRN PRN Reason: Nausea/Vomiting Potassium Chloride (K-Dur) 40 meq PO ASDIR PRN PRN Reason: FOR SERUM K+ 2.5 - 3.5 Last Admin: 04/22/19 05:02 Dose: 40 meq Potassium Chloride (Klor-Con) 40 meq PER TUBE ASDIR PRN PRN Reason: FOR SERUM K+ 2.5-3.5 Vital Signs & Weight: Vital Signs Temp Pulse Ox 04/22/19 12:00 98.9 F 04/22/19 07:33 100 04/22/19 07:00 97.7 F 04/22/19 03:00 98.7 F Weight 224 lb 13.944 oz I/O: I/O 04/21/19 04/22/19 04/23/19 06:59 06:59 06:59 Intake Total 6008 2400 Output Total 4665 1590 Balance 1343 810 - Physical Exam General: alert & oriented x3, appears well, no apparent distress, speech clear, affect appropriate HEENT: mucus membranes moist, normocephaly Neck: supple neck, midline trachea, no JVD/HJR Cardiology: regular rate and rhythm, no murmur, PMI nondisplaced Lungs: clear to auscultation, normal breath sounds, no wheeze, rales, rhonchi Neurology: cranial nerve 2-12 intact, grossly intact, no lateralizing findings Abdomen: unremarkable, no pulsations/bruits, no hepatosplenomegaly Extremities: dry, strong pulses, warm - Labs Result Diagrams: 04/21/19 05:40 04/22/19 03:30 - EKG Interpretation EKG Method: Telemetry EKG shows: Sinus rhythm - Assessment/Plan Assessment/Plan: 1. Atrial fibrillation with rapid ventricular rates, especially with hypotension. 2. Ketoacidosis with pH at 6.88, glucose 423 3. History of diabetes, type 1 with insulin pump 4. History of EtOH abuse. 5. History of depression. 6. History of hypertension. 7. History of hypercholesteremia. 8. History of chronic back pain with repeated back surgeries. 9. CHADS2-VASC: 2 ( diabetes and HTN) -on lovenox for anticoagulation. Markedly improved in the past 24 hours. remains in SR after chemically converting with amiodarone gtt, which continues at 0.5mg/min. I would stop amiodarone once his acidosis/metabolic issues are corrected. I recommend continued anticoagulation throughout his hospital stay and upon discharge. Could consider Xarelto, possibly dose adjusted depending on his kidney function when the time comes. I will see him back in clinic in 6 weeks and anticipate having him wear a 14 day monitor to assess for A Fib. My hope is his AFib episode was simply provoked by his acidosis and no further episodes will be seen clinically now that he has stabilized. Transient OAC as mentioned above, but could consider switching to ASA alone in the future if no recurrent AF episodes are found. Will see thursday if he remains inpatient.
[2019-04-22 14:19] LABS: Vancomycin, Trough 10.8 ug/mL
[2019-04-22 14:44] LABS: Anion Gap 17 mmol/L (10-20); BUN (Urea Nitrogen) 11 mg/dL (8.9-20.6); Calc. Creatinine Clearance 111 mL/min (70-130); Calcium 7.7 mg/dL (7.8-10.44); Carbon Dioxide 18 mmol/L (22-29); Chloride 107 mmol/L (98-107); Estimated GFR-MDRD 65; Glucose 91 mg/dL (70-105); Sodium 139 mmol/L (136-145)
[2019-04-22] MEDS ORDERED: Dextrose 5% in Water 1,000 ML IV PRN (15:55)
[2019-04-22] MEDS ORDERED: Dextrose 50% Abboject 50 ML SYRINGE SLOW IVP PRN (15:55)
[2019-04-22] MEDS ORDERED: Vancomycin 1.5 GRAM/300 ML BAG 1.5 GM in Premix Bag 1 BAG IVPB SCH (16:00)
[2019-04-22] MEDS ORDERED: Potassium Chloride 20 MEQ TAB PO SCH (16:00)
--- NOTE | 2019-04-22 16:15 | PRG ---
DATE OF SERVICE: 04/22/2019 SERVICE: Pulmonary Medicine. INTERVAL HISTORY: The patient is doing fine from respiratory standpoint. Breathing comfortably. He indicates that he uses about 70 units on a daily basis of basal insulin. Outside of that, there were no events overnight. There were no fevers or chills. He denies any current chest discomfort, nausea, vomiting, or diarrhea. He feels like his appetite has improved. PHYSICAL EXAMINATION: VITAL SIGNS: Afebrile, pulse 59, blood pressure 148/65, respirations 29, saturation 99% currently on room air. GENERAL: The patient is awake and alert, in no apparent distress. LUNGS: Decent air entry with no prolonged expiratory phase or wheezing present. HEART: Normal rate, regular. ABDOMEN: Soft, nontender, and nondistended. Bowel sounds are positive. MUSCULOSKELETAL: No cyanosis or clubbing. There is no pitting in bilateral lower extremities. NEUROLOGIC: Grossly nonfocal. LABORATORY DATA: WBC 17.1, hemoglobin 14.7, platelets 268,000. Potassium 3.0. Bicarb 18, anion gap has improved to 17. Creatinine 1.21 and gently downtrending. Blood cultures x2 and urine culture negative to date. ASSESSMENT: 1. Acute hypoxic respiratory failure, resolved. 2. Diabetic ketoacidosis. 3. Metabolic encephalopathy. 4. Acute kidney injury. 5. Systemic inflammatory response syndrome. DISCUSSION AND PLAN: I will continue the patient on his current dose and insulin. I will give him 40 units of subcu Lantus. This will be on a daily basis. Potassium will be replaced. Once his anion gap improves a little bit more, we can feed him and consider him for transition to the floor. Pulmonary/Critical Care will continue to follow while he remains in the ICU. Job ID: [id number] MTDD
--- NOTE | 2019-04-22 16:15 | PRG ---
DATE OF SERVICE: 04/22/2019 SUBJECTIVE: The patient was seen at bedside, who earlier during round wanted to eat. Denies any nausea, vomiting, diarrhea, abdominal pain, chest pain, palpitation, or shortness of breath. No palpitations. PHYSICAL EXAMINATION: VITAL SIGNS: Blood pressure 148/65, heart rate of 59, respiratory rate 16, and oxygen saturation 99%. GENERAL: The patient is lying in bed, comfortably, in no distress. HEENT: Conjunctivae are normal. Oral mucosa moist. NECK: Supple. No JVD. No lymphadenopathy. CHEST: Normal vesicular breathing. HEART: Sounds are normal. ABDOMEN: Soft. EXTREMITIES: Negative edema of feet. No rash. No cyanosis. LABORATORY DATA: BMP unremarkable except potassium 3.0, CO2 of 18, anion gap 17, blood glucose is 91 on BMP, and blood sugar 113 on Glucochecks. IMPRESSION: 1. Diabetic ketoacidosis, resolved. The patient denies any nausea, vomiting, or abdominal pain. Feels hungry. Blood sugar is stable. Anion gap 17. Switch to long-acting insulin and sliding scale. 2. Acute kidney injury with dehydration and acidosis. Nephrology on board. The patient's electrolytes are improving. Continue electrolyte replacement protocol. Continue to monitor fluid status, which is improving. 3. Leukocytosis, possibly reactive. We will discontinue antibiotics. 4. Paroxysmal atrial fibrillation. EP evaluation appreciated. Continue amiodarone. Recommended to continue anticoagulation upon discharge and to follow up outpatient with EP for event monitoring. 5. Deep venous thrombosis and gastrointestinal prophylaxis. Plan discussed with the patient and nursing staff. Job ID: [id number]
[2019-04-22] MEDS: HumaLOG 300 UNITS/3 ML VIAL SC PRN ×2 (16:36→20:30)
[2019-04-22] MEDS: 1/2 NS w/KCL 20 mEq 1,000 ML IV SCH (16:56)
[2019-04-23] MEDS: 1/2 NS w/KCL 20 mEq 1,000 ML IV SCH (05:54)
[2019-04-23] MEDS: HumaLOG 300 UNITS/3 ML VIAL SC PRN ×3 (05:55→18:25)
[2019-04-23 06:48] LABS: #Monocytes 0.4 thou/uL (0.11-0.59); #Neutrophils 2.5 thou/uL (1.40-6.50); %Basophils 0.4 % (0.0-1.0); %Eosinophils 0.2 % (0.0-10.0); %Lymphocytes 25.7 % (21.0-51.0); %Monocytes 11.3 % (0.0-10.0); %Neutrophils 62.5 % (42.0-75.0); Hemoglobin 12.9 g/dL (14.0-18.0); Mean Corpuscular HGB CONC 33.7 g/dL (32.0-36.0); Mean Corpuscular Hemoglobin 31.8 pg (27.0-31.0); Mean Corpuscular Volume 94.2 fL (78.0-98.0); Platelet Count 118 thou/uL (130-400); Platelet Morphology Comment Appears Decreased; RBC Distribution Width 11.9 % (11.5-14.5); Red Blood Cell (RBC) Count 4.05 mill/uL (4.70-6.10); White Blood Cell (WBC) Count 3.9 thou/uL (4.8-10.8)
[2019-04-23 06:51] LABS: Albumin 3.7 g/dL (3.5-5.0); Anion Gap 20 mmol/L (10-20); BUN (Urea Nitrogen) 11 mg/dL (8.9-20.6); BUN/Creatinine Ratio 7.91; Calc. Creatinine Clearance 95 mL/min (70-130); Calcium 8.4 mg/dL (7.8-10.44); Carbon Dioxide 20 mmol/L (22-29); Chloride 102 mmol/L (98-107); Estimated GFR-MDRD 55; Glucose 218 mg/dL (70-105); Potassium 3.5 mmol/L (3.5-5.1); Sodium 138 mmol/L (136-145)
[2019-04-23 07:03] LABS: Phosphorus 1.2 mg/dL (2.3-4.7)
[2019-04-23] MEDS ORDERED: Potassium Phosphate 30 MMOL in Sodium Chloride 0.9% 500 ML IVPB SCH ×2 (07:30→08:00)
[2019-04-23 08:38] LABS: #Monocytes 0.5 thou/uL (0.11-0.59); #Neutrophils 2.3 thou/uL (1.40-6.50); %Basophils 0.4 % (0.0-1.0); %Eosinophils 0.2 % (0.0-10.0); %Lymphocytes 26.2 % (21.0-51.0); %Monocytes 12.7 % (0.0-10.0); %Neutrophils 60.4 % (42.0-75.0); Hemoglobin 12.5 g/dL (14.0-18.0); Mean Corpuscular HGB CONC 33.7 g/dL (32.0-36.0); Mean Corpuscular Hemoglobin 31.6 pg (27.0-31.0); Mean Corpuscular Volume 93.8 fL (78.0-98.0); Platelet Count 112 thou/uL (130-400); RBC Distribution Width 11.8 % (11.5-14.5); Red Blood Cell (RBC) Count 3.95 mill/uL (4.70-6.10); White Blood Cell (WBC) Count 3.8 thou/uL (4.8-10.8)
[2019-04-23] MEDS: Famotidine/PF 20 mg/2ml Vial SLOW IVP SCH ×2 (08:57→21:42)
[2019-04-23] MEDS: DULoxetine 60 MG CAP PO SCH (08:57)
[2019-04-23] MEDS: Enoxaparin Sodium 100 MG/ML SYRINGE SC SCH (08:57)
[2019-04-23] MEDS ORDERED: Insulin Glargine 40 UNITS in Pre-Filled Syringe 1 EACH SC SCH (09:00)
--- NOTE | 2019-04-23 11:15 | PRG ---
DATE OF SERVICE: 04/23/2019 SUBJECTIVE: The patient seen at bedside. Denies any chest pain, shortness of breath, headache, nausea, vomiting, diarrhea, or bleeding. Tolerating diet well. OBJECTIVE: VITAL SIGNS: Blood pressure 151/71, temperature 95.4, pulse 73, respirations are 20, and oxygen saturation 96% on room air. GENERAL: The Patient is lying in bed comfortably, in no distress. HEENT: Conjunctivae are normal. Oral mucosa moist. NECK: Supple. No JVD. CHEST: Normal vesicular breathing. CARDIAC: Heart sounds are normal. ABDOMEN: Soft, benign. EXTREMITIES: Negative edema of feet. LABORATORY DATA: BMP unremarkable except creatinine 1.39, blood glucose 218, and phosphorus 1.2. CBC unremarkable except white blood cells 3.8, hemoglobin 12.5 , and platelet 112. IMPRESSION: 1. Diabetic ketoacidosis, resolved. The patient is currently tolerating a diet. Denies any nausea or vomiting. No belly pain. 2. Thrombocytopenia. Platelets 110 today. The patient's platelets were 260 on admission. Discussed with on-call organic chemist, Dr. Jean-Claude Grey. The patient was on Lovenox. His impression has been Lovenox should not be cause of thrombocytopenia at present, possibly related to antibiotics use, which were discontinued yesterday. We will continue to monitor platelets one more day. We will discontinue Lovenox and started on Xarelto for stroke prophylaxis in the presence of paroxysmal atrial fibrillation. 3. Paroxysmal atrial fibrillation. EP evaluation appreciated. The patient is status post admitted on impression is atrial fibrillation, most likely related to ketoacidosis. Recommended to continue oral anticoagulation after discussion with Dr. Jean-Claude Grey. We will start the patient on Xarelto today. We will check CBC in the morning. If the patient's platelets remained stable, we will discharge home with followup outpatient with oncologist. 4. Acute kidney injury with electrolyte imbalance. We will continue currently fluids. The patient currently denies any nausea or vomiting. Continue electrolyte replacement. 5. Deep venous thrombosis and gastrointestinal prophylaxis. Plan discussed with the patient and nursing staff in detail. Job ID: [id number] MTDD
--- NOTE | 2019-04-23 12:59 | PRG ---
DATE OF SERVICE: 04/23/2019 SERVICE: Nephrology. SUBJECTIVE: A 43-year-old with diabetes, hypertension, seen in followup for acute kidney injury. The patient was admitted due to mental status change and . Clinically, improved. Feels at baseline with no new complaint. OBJECTIVE: VITAL SIGNS: Temperature 98.4, pulse 73, respiratory rate 20, SpO2 of 96% on room air, blood pressure is 151/71. GENERAL: Middle-age male, in no distress. Afebrile. Anicteric. Acyanotic. HEENT: Normocephalic, atraumatic. Oral mucosa is moist. CARDIOVASCULAR: Regular rhythm and rate. Normal heart sounds one and two. RESPIRATORY: Good air entry bilaterally with no crackle or rhonchi or use of accessory muscles. GI: Full, soft, nontender, nondistended with normal bowel sounds. EXTREMITIES: Grossly normal-looking, atraumatic, with no edema or erythema. PROGRAM ARRANGER: Conscious, alert, and oriented x3 with appropriate mental status. Cranial nerves 2 through 12 are grossly intact. DIAGNOSTIC DATA: CBC showed WBC count of 3.8, hemoglobin of 12.5, platelets of 112. Renal function panel showed sodium 138, potassium 3.5, chloride 102, CO2 20, anion gap 20, BUN 11, creatinine 1.39, glucose 218, calcium 8.4, phosphorus 1.2, albumin 3.7. Note that, BUN yesterday was 11 and creatinine was 1.21. ASSESSMENT: 1. Acute kidney injury: Improved. Creatinine is trending up today from 1.21 yesterday to 1.39. This is most likely due to volume contraction. The patient is still dry clinically. 2. Creatinine ranges from 1.05 to 1.1. 3. Chronic kidney disease stage 2/3 due to diabetes and hypertension. 4. Metabolic acidosis due to diabetic ketoacidosis and alcohol abuse, as well as chronic kidney disease. Improved, but not yet resolved. 5. Hypokalemia: Improved with supplementation. 6. Hyperkalemia, resolved due to acidosis and shift. 7. Hypophosphatemia due to poor oral intake and renal losses from hyperglycemia-induced diuresis. 8. Hypertension, control is acceptable. 9. Hypotension, resolved. 10. Atrial fibrillation with rapid ventricular response, currently in sinus. PLAN: We will replete serum phosphate and potassium with potassium phosphate. IV fluid as per primary attending. Recommend increase in IV fluid as the patient is clinically dry. Also, his creatinine is trending up. [place] oral intake advised. With improvement in renal function, Nephrology will sign off at this time. However, given history of CKD, the patient was advised to follow up in 1 to 2 weeks postdischarge with repeat renal function test. Other treatment as per primary attending and other specialties. Job ID: [id number]
[2019-04-23] MEDS ORDERED: HYDROcodone/Acetaminophen 10/325 mg Tablet PO PRN (18:01)
[2019-04-23] MEDS ORDERED: Atorvastatin Calcium 20 MG TAB PO SCH (21:00)
[2019-04-23] MEDS: Gabapentin 300 MG CAP PO SCH (21:42)
[2019-04-23] MEDS: oxyCODONE ER 20 MG TAB PO SCH (21:51)
[2019-04-23] MEDS ORDERED: HumaLOG 300 UNITS/3 ML VIAL SC PRN (22:11)
[2019-04-24 05:17] LABS: #Lymphocytes 1.1 thou/uL (1.20-3.40); #Monocytes 0.3 thou/uL (0.11-0.59); #Neutrophils 1.2 thou/uL (1.40-6.50); %Basophils 0.6 % (0.0-1.0); %Eosinophils 0.5 % (0.0-10.0); %Lymphocytes 41.2 % (21.0-51.0); %Monocytes 12.5 % (0.0-10.0); %Neutrophils 45.2 % (42.0-75.0); Hemoglobin 12.3 g/dL (14.0-18.0); Mean Corpuscular HGB CONC 34.1 g/dL (32.0-36.0); Mean Corpuscular Hemoglobin 32.2 pg (27.0-31.0); Mean Corpuscular Volume 94.5 fL (78.0-98.0); Mean Platelet Volume 9.4 fL (7.4-10.4); Platelet Count 98 thou/uL (130-400); RBC Distribution Width 11.8 % (11.5-14.5); Red Blood Cell (RBC) Count 3.83 mill/uL (4.70-6.10); White Blood Cell (WBC) Count 2.7 thou/uL (4.8-10.8)
[2019-04-24 05:39] LABS: Anion Gap 10 mmol/L (10-20); BUN (Urea Nitrogen) 9 mg/dL (8.9-20.6); Calc. Creatinine Clearance 112 mL/min (70-130); Calcium 8.4 mg/dL (7.8-10.44); Carbon Dioxide 30 mmol/L (22-29); Chloride 103 mmol/L (98-107); Estimated GFR-MDRD 67; Glucose 227 mg/dL (70-105); Potassium 3.4 mmol/L (3.5-5.1); Sodium 140 mmol/L (136-145)
[2019-04-24] MEDS ORDERED: Rivaroxaban 10 MG TAB PO SCH (06:00)
[2019-04-24] MEDS: oxyCODONE ER 20 MG TAB PO SCH (06:24)
[2019-04-24] MEDS: HumaLOG 300 UNITS/3 ML VIAL SC PRN ×2 (08:02→11:54)
[2019-04-24] MEDS ORDERED: Potassium Chloride 20 MEQ TAB PO SCH (08:45)
[2019-04-24] MEDS: Famotidine/PF 20 mg/2ml Vial SLOW IVP SCH (08:58)
[2019-04-24] MEDS: Gabapentin 300 MG CAP PO SCH (08:59)
[2019-04-24] MEDS ORDERED: DULoxetine 60 MG CAP PO SCH (09:00)
[2019-04-24] MEDS ORDERED: Amlodipine 5 MG TAB PO SCH (09:00)
[2019-04-24] MEDS ORDERED: Losartan 25 MG TAB PO SCH (09:00)
[2019-04-24] MEDS ORDERED: Fenofibrate Nanocrystallized 145 MG TAB PO SCH (09:00)
[2019-04-24] MEDS ORDERED: Levothyroxine 150 MCG TAB PO SCH (09:00)
[2019-04-24] MEDS ORDERED: Insulin Glargine 50 UNITS in Pre-Filled Syringe 1 EACH SC SCH (09:00)
[2019-04-24] MEDS ORDERED: Non-Formulary Item 1 EACH (Phentermine Hcl [Phentermine Hcl] 37.5 MG) PO SCH (09:00)
[2019-04-24 11:12] VITALS: BP 158/78; TEMP 99.1
--- NOTE | 2019-04-25 05:29 | DIS ---
DATE OF ADMISSION: 04/21/2019 DATE OF DISCHARGE: 04/24/2019 DISCHARGE DIAGNOSES: 1. Diabetic ketoacidosis, resolved. 2. Thrombocytopenia, possible antibiotics related, stable. 3. Paroxysmal atrial fibrillation. 4. Sinus bradycardia. 5. Acute kidney injury with electrolyte imbalance. 6. Hypertension. 7. Hypercholesterolemia. PHYSICAL EXAMINATION: VITAL SIGNS: Blood pressure 169/83, temperature 98.7, pulse 50, respiratory rate 18, and oxygen saturation 97%. GENERAL: The patient lying in bed comfortably, in no distress. HEENT: Conjunctivae normal. Oral mucosa moist. NECK: Supple. No JVD. CHEST: Normal vesicular breathing. HEART: Heart sounds normal. ABDOMEN: Soft, benign. No tenderness or visceromegaly. EXTREMITIES: Negative edema of feet. No rash. No cyanosis. LABORATORY DATA: BMP unremarkable on 04/24, except potassium 3.4 and blood sugar 270 on BMP. CBC unremarkable on 04/24/2019. White blood cell is 2.7, hemoglobin 12.3, and platelets 98. UA negative. Urine toxicology negative. Beta hydroxybutyrate positive. HOSPITAL SUMMARY: The patient, Balwinder Pruett, was admitted with change in mental status and also had abdominal pain, nausea, and vomiting. The patient admitted with diabetic ketoacidosis in the emergency room, also had atrial fibrillation with RVR. The patient placed on Cardizem placed on amiodarone drip. The patient reverted into sinus rhythm and the patient treated with insulin, admitted to ICU. DKA resolved. The patient switched to sliding scale insulin and Lantus. The patient's blood sugar is stable. The patient is currently alert, awake, oriented. No distress. No chest pain. Tolerating diet. No bleeding. The patient also had low platelets on admission to 68. The patient started on Lovenox, and platelets dropped to 118, 112, and 98 today. The patient was also started on provisional antibiotics on admission. White blood cells are 2.7 and on admission, they were 17.1. I discussed case with Dr. Jean-Claude Grey, on-call oncologist/wireless cellular technician. His impression is platelet drops are due to possibly related to antibiotics. Does not look like related to Lovenox and not thinking we need to perform HIT antibodies. The patient today in sinus bradycardia and heart rate fluctuates between 45 and 60. The patient not in any distress. No chest pain. No headache. No dizziness. No bleeding. I discussed case with Dr. Sanchez, truck service manager on the phone. His impression is that paroxysmal atrial fibrillation is most likely related to diabetic ketoacidosis related and may not come back again and as the patient has thrombocytopenia, we discussed and he recommending patient can go without any anticoagulation and without aspirin and the patient should follow up in the clinic in one week and also I spoke personally with the patient and asked him to follow up with PCP; with Dr. Sanchez, truck service manager in a week; and Dr. Jean-Claude Grey, wireless cellular technician in a week and also advised the patient to follow with supervisor reactor fueling and PCP. The patient currently discharged, being in a stable condition. Job ID: [id number]
== END 2019-04-24 14:32 | disposition home or self-care (01) | DRG 637 ==
LOC: ERS 05:02 → CCU 06:53 → T4-B 04-22 17:40 → 2NO 04-23 12:21
PROVIDERS: ADMIT Internal Medicine Nephrology; ATTEND Hospitalist
DX: E10.10 Type 1 diabetes mellitus with ketoacidosis without coma (principal); G92 Toxic encephalopathy; J96.01 Acute respiratory failure with hypoxia; N17.9 Acute kidney failure, unspecified; R65.10 Systemic inflammatory response syndrome (SIRS) of non-infectious origin without acute organ dysfunction; I48.0 Paroxysmal atrial fibrillation; E78.00 Pure hypercholesterolemia, unspecified; E78.5 Hyperlipidemia, unspecified; F17.220 Nicotine dependence, chewing tobacco, uncomplicated; E87.6 Hypokalemia; G89.29 Other chronic pain; M54.9 Dorsalgia, unspecified; F10.129 Alcohol abuse with intoxication, unspecified; E86.0 Dehydration; N18.3 Chronic kidney disease, stage 3 (moderate); I12.9 Hypertensive chronic kidney disease with stage 1 through stage 4 chronic kidney disease, or unspecified chronic kidney disease; E10.22 Type 1 diabetes mellitus with diabetic chronic kidney disease; Z96.41 Presence of insulin pump (external) (internal); R00.1 Bradycardia, unspecified; D69.59 Other secondary thrombocytopenia; T36.95XA Adverse effect of unspecified systemic antibiotic, initial encounter; E83.39 Other disorders of phosphorus metabolism; E87.5 Hyperkalemia; Z79.899 Other long term (current) drug therapy; Z79.890 Hormone replacement therapy; Z79.84 Long term (current) use of oral hypoglycemic drugs; Z79.4 Long term (current) use of insulin
CPT/HCPCS: 36415; 36416; 70450; 71045; 80048; 80053; 80069; 80202; 80306; 80307; 81003; 81015; 82010; 82330; 82803; 82805; 83605; 83735; 84100; 84443; 84484; 85025; 87040; 87086; 93005; 93306; 94760; J0282; J0692; J1160; J1650; J1815; J2310; J2543; J2704; J3370; J3480; J3490; J7050; J7070; S0028

== ENCOUNTER 2024-11-25 13:33 | Outpatient (CLI) | payer BC | END 2024-11-25 13:34 | disposition home or self-care (01) | LOC: MRI 13:33 | PROVIDERS: ATTEND Orthopaedic Surgery | DX: S83.231A Complex tear of medial meniscus, current injury, right knee, initial encounter (principal); S83.271A Complex tear of lateral meniscus, current injury, right knee, initial encounter; M85.861 Other specified disorders of bone density and structure, right lower leg; M25.461 Effusion, right knee ==